=== PATIENT | male | born 1950 | race Caucasian/White ===

== ENCOUNTER 2020-12-09 12:07 | Outpatient (CLI) | payer MEDICARE, OTHER ==
[2020-12-09 14:32] LABS: Hemoglobin 16.2 g/dL (13.5-17.5); Mean Corpuscular HGB CONC 32.8 g/dL (32.0-36.0); Mean Corpuscular Hemoglobin 31.7 pg (27.0-33.0); Mean Corpuscular Volume 96.7 fl (81.2-95.1); Mean Platelet Volume 10.8 fl (7.4-10.4); Platelet Count 202 10x3/uL (150-450); Red Blood Cell (RBC) Count 5.11 10x6/uL (4.32-5.72); White Blood Cell (WBC) Count 9.2 10x3/uL (3.5-10.5)
[2020-12-09 14:38] LABS: Anion Gap 12 mmol/L (10-20); BUN (Urea Nitrogen) 12 mg/dL (8.4-25.7); Calc. Creatinine Clearance 0 mL/min (70-130); Calcium 8.9 mg/dL (7.8-10.44); Carbon Dioxide 31 mmol/L (23-31); Chloride 101 mmol/L (98-107); Glucose 89 mg/dL (80-115); Potassium 4.5 mmol/L (3.5-5.1); Sodium 139 mmol/L (136-145)
[2020-12-09 14:42] LABS: Bilirubin Neg (Negative); Blood, Urine Negative (Negative); Clarity Clear (Clear); Glucose, Urine (Dipstick) Normal (Negative); Ketone, Urine Negative (Negative); Leukocyte Negative (Negative); Nitrite Negative (Negative); Protein, Urine (Dipstick) Negative (Neg-Trace); Urobilinogen Normal mg/dL (Less than 2)
[2020-12-09 15:05] LABS: Bacteria/HPF None Seen HPF (None Seen); RBC/HPF 0-3 HPF (0-3); Squamous Epithelial None Seen HPF (0-3); WBC/HPF None Seen HPF (0-3)
[2020-12-10 04:28] LABS: SARS-CoV-2 PCR by NAA Not Detected (NotDetected)
== END 2020-12-09 12:08 | disposition home or self-care (01) ==
LOC: LABBT 12:07
PROVIDERS: ATTEND Urology
DX: Z01.818 Encounter for other preprocedural examination (principal); Z20.822 Contact with and (suspected) exposure to COVID-19; N40.1 Benign prostatic hyperplasia with lower urinary tract symptoms
CPT/HCPCS: 80048; 81001; 85027; 87086; 93005; U0003; U0005; 87635; 93010

== ENCOUNTER 2020-12-14 05:57 | Day surgery (SDC) | payer MEDICARE, OTHER ==
[2020-12-13 10:23] VITALS: BMI 24.3
[2020-12-14] MEDS ORDERED: Levofloxacin 500 mg/D5W 100 ml Premix Bag ONE (07:25)
[2020-12-14] MEDS ORDERED: PROPOFOL 200 MG/20 ML VIAL ONE (08:40)
[2020-12-14] MEDS ORDERED: Oxybutynin 5 MG TAB ONE (09:35)
[2020-12-14] MEDS ORDERED: Phenazopyridine HCl 100 MG TAB ONE (09:36)
[2020-12-14] MEDS ORDERED: Ketorolac Tromethamine 30 MG/ML VIAL ONE (10:16)
== END 2020-12-14 15:00 | disposition home or self-care (01) ==
LOC: SDC 05:57
PROVIDERS: ATTEND Urology
PROC: 0T7D8DZ Dilation of Urethra with Intraluminal Device, Via Natural or Artificial Opening Endoscopic (ICD-10-PCS; principal; 2020-12-14)
DX: N40.1 Benign prostatic hyperplasia with lower urinary tract symptoms (principal); R39.16 Straining to void; R39.12 Poor urinary stream; R39.14 Feeling of incomplete bladder emptying; E78.5 Hyperlipidemia, unspecified
CPT/HCPCS: J1885; J1956; J2704; L8699

== ENCOUNTER 2021-09-08 09:26 | Outpatient (CLI) | payer MEDICARE ==
[2021-09-08 10:20] LABS: Bilirubin Neg (Negative); Blood, Urine Negative (Negative); Clarity Clear (Clear); Glucose, Urine (Dipstick) Normal (Negative); Ketone, Urine Negative (Negative); Leukocyte 25 (Negative); Nitrite Negative (Negative); Protein, Urine (Dipstick) Negative (Neg-Trace); Specific Gravity, Urine 1.005 (1.002-1.036); Urobilinogen Normal mg/dL (Less than 2)
[2021-09-08 10:26] LABS: Hemoglobin 16.8 g/dL (13.5-17.5); Mean Corpuscular HGB CONC 32.2 g/dL (32.0-36.0); Mean Corpuscular Hemoglobin 31.3 pg (27.0-33.0); Mean Corpuscular Volume 97.2 fl (81.2-95.1); Mean Platelet Volume 10.4 fl (7.4-10.4); Platelet Count 219 10x3/uL (150-450); RBC Distribution Width 13.1 % (11.5-14.5); Red Blood Cell (RBC) Count 5.37 10x6/uL (4.32-5.72); White Blood Cell (WBC) Count 6.1 10x3/uL (3.5-10.5)
[2021-09-08 10:43] LABS: Anion Gap 14 mmol/L (10-20); BUN (Urea Nitrogen) 10 mg/dL (8.4-25.7); Calc. Creatinine Clearance 0 mL/min (70-130); Carbon Dioxide 28 mmol/L (23-31); Chloride 104 mmol/L (98-107); Glucose 108 mg/dL (80-115); Potassium 4.1 mmol/L (3.5-5.1); Sodium 142 mmol/L (136-145)
[2021-09-08 10:45] LABS: Bacteria/HPF None Seen HPF (None Seen); RBC/HPF None Seen HPF (0-3); Squamous Epithelial None Seen HPF (0-3); WBC/HPF 0-3 HPF (0-3)
[2021-09-08 22:40] LABS: SARS-CoV-2 PCR by NAA Not Detected (NotDetected)
== END 2021-09-08 09:27 | disposition home or self-care (01) ==
LOC: LABBT 09:26
PROVIDERS: ATTEND Urology
DX: Z01.818 Encounter for other preprocedural examination (principal); Z20.822 Contact with and (suspected) exposure to COVID-19
CPT/HCPCS: 80048; 81001; 85027; 87086; 93005; U0003; U0005; 93010

== ENCOUNTER 2021-09-13 06:49 | Day surgery (SDC) | payer MEDICARE ==
[2021-09-07 11:47] VITALS: BMI 24.0
[2021-09-13] MEDS ORDERED: Levofloxacin 500 mg/D5W 100 ml Premix Bag ONE (07:01)
[2021-09-13] MEDS ORDERED: Fentanyl 100 MCG/2 ML VIAL ONE (07:43)
[2021-09-13] MEDS ORDERED: ePHEDrine 50 MG/ML VIAL ONE (07:45)
[2021-09-13] MEDS ORDERED: PROPOFOL 200 MG/20 ML VIAL ONE (07:48)
[2021-09-13] MEDS ORDERED: Ketorolac Tromethamine 30 MG/ML VIAL ONE (08:51)
[2021-09-13] MEDS ORDERED: Phenazopyridine HCl 100 MG TAB ONE (08:52)
[2021-09-13] MEDS ORDERED: Oxybutynin 5 MG TAB ONE (08:52)
== END 2021-09-13 10:34 | disposition home or self-care (01) ==
LOC: SDC 06:49
PROVIDERS: ATTEND Urology
PROC: 0T7D8DZ Dilation of Urethra with Intraluminal Device, Via Natural or Artificial Opening Endoscopic (ICD-10-PCS; principal; 2021-09-13)
DX: N40.1 Benign prostatic hyperplasia with lower urinary tract symptoms (principal); N13.8 Other obstructive and reflux uropathy; R35.1 Nocturia; R39.12 Poor urinary stream; R35.0 Frequency of micturition; Z79.899 Other long term (current) drug therapy
CPT/HCPCS: J1885; J1956; J2704; J3010; J3490; L8699

== ENCOUNTER 2023-11-08 10:38 | Outpatient (CLI) | payer MEDICARE, OTHER ==
[2023-11-08 12:33] LABS: Hematocrit 51.4 % (38.8-50.0); Hemoglobin 17.3 g/dL (13.5-17.5); Mean Corpuscular HGB CONC 33.7 g/dL (32.0-36.0); Mean Corpuscular Hemoglobin 31.4 pg (27.0-33.0); Mean Corpuscular Volume 93.3 fl (81.2-95.1); Mean Platelet Volume 10.3 fl (7.4-10.4); Platelet Count 244 10x3/uL (150-450); RBC Distribution Width 13.5 % (11.5-14.5); Red Blood Cell (RBC) Count 5.51 10x6/uL (4.32-5.72); White Blood Cell (WBC) Count 6.7 10x3/uL (3.5-10.5)
[2023-11-08 12:50] LABS: PTT 30.6 sec (22.0-33.0); Prothrombin Time 11.2 sec (9.5-12.1)
[2023-11-08 12:57] LABS: Anion Gap 13 mmol/L (10-20); BUN (Urea Nitrogen) 16 mg/dL (8.4-25.7); Calc. Creatinine Clearance 0 mL/min (70-130); Carbon Dioxide 27 mmol/L (23-31); Chloride 105 mmol/L (98-107); Estimated GFR 92; Glucose 100 mg/dL (83-110); Potassium 4.4 mmol/L (3.5-5.1); Sodium 141 mmol/L (136-145)
[2023-11-08 13:18] LABS: Bilirubin Neg (Negative); Blood, Urine Negative (Negative); Clarity Clear (Clear); Glucose, Urine (Dipstick) Normal (Negative); Ketone, Urine Negative (Negative); Leukocyte Negative (Negative); Nitrite Negative (Negative); Protein, Urine (Dipstick) Negative (Neg-Trace); Specific Gravity, Urine 1.005 (1.005-1.030); Urobilinogen Normal mg/dL (Less than 2)
[2023-11-08 15:21] LABS: RBC/HPF 0-3 HPF (0-3); Squamous Epithelial 0-3 HPF (0-3); WBC/HPF None Seen HPF (0-3)
[2023-11-08 15:22] LABS: Bacteria/HPF None Seen HPF (None Seen)
== END 2023-11-08 10:39 | disposition home or self-care (01) ==
LOC: LABBT 10:38
PROVIDERS: ATTEND Urology
DX: Z01.818 Encounter for other preprocedural examination (principal); N40.1 Benign prostatic hyperplasia with lower urinary tract symptoms
CPT/HCPCS: 80048; 81001; 85027; 85610; 85730; 87086; 93005; 93010

== ENCOUNTER 2023-11-15 07:23 | Day surgery (SDC) | payer MEDICARE, OTHER ==
[2023-11-08 11:15] VITALS: BMI 23.3
[2023-11-15] MEDS ORDERED: LevoFLOXacin D5W 500 mg (100 mL) BAG ONE (09:27)
[2023-11-15] MEDS ORDERED: Rocuronium Bromide 10 MG/ML (10ML VIAL) ONE (10:14)
[2023-11-15] MEDS ORDERED: PROPOFOL 20 ML ONE (10:14)
[2023-11-15] MEDS ORDERED: fentaNYL PF 100 MCG/2 ML SYRINGE ONE (10:24)
[2023-11-15] MEDS ORDERED: Ketorolac Tromethamine 30 MG (1 mL) VIAL ONE (10:47)
[2023-11-15] MEDS ORDERED: Dexamethasone 4 mg/ml Vial ONE (10:47)
[2023-11-15] MEDS ORDERED: Ondansetron PF 4 MG/2 ML Vial ONE (10:47)
[2023-11-15] MEDS ORDERED: Glycopyrrolate 0.2 MG/ML 5 ML SYRINGE ONE (12:00)
[2023-11-15] MEDS ORDERED: NEOSTIGMINE 3 MG/3 ML SYR 3 MG/3 ML SYRINGE ONE (12:00)
[2023-11-15] MEDS ORDERED: Ondansetron ODT 4 MG TAB ONE (16:37)
== END 2023-11-15 17:53 | disposition home or self-care (01) ==
LOC: SDC 07:23
PROVIDERS: ATTEND Urology
PROC: 0VT08ZZ Resection of Prostate, Via Natural or Artificial Opening Endoscopic (ICD-10-PCS; principal; 2023-11-15)
DX: N40.1 Benign prostatic hyperplasia with lower urinary tract symptoms (principal); N13.8 Other obstructive and reflux uropathy
CPT/HCPCS: 52601; 82962; A4333; 36416; 88305; J1100; J1885; J1956; J2405; J2704; Q0162

== ENCOUNTER 2024-10-10 09:15 | Outpatient (CLI) | payer MEDICARE, OTHER ==
[2024-10-10 10:33] LABS: #Basophils 0.03 10x3/uL (0.0-0.2); %Basophils 0.3 % (0.0-1.0); %Lymphocytes 10.1 % (21.0-51.0); %Monocytes 7.1 % (0.0-10.0); %Neutrophils 81.3 % (42.0-75.0); Hemoglobin 17.2 g/dL (14.0-18.0); Mean Corpuscular HGB CONC 32.5 g/dL (32.0-36.0); Mean Corpuscular Hemoglobin 30.5 pg (27.0-31.0); Mean Platelet Volume 10.4 fL (7.4-10.4); Platelet Count 220 10x3/uL (130-400); RBC Distribution Width 13.3 % (11.5-14.5); Red Blood Cell (RBC) Count 5.64 mill/uL (4.70-6.10)
[2024-10-10 10:44] LABS: Bacteria/HPF None Seen HPF (None Seen); Bilirubin Negative (Negative); Blood, Urine Negative (Negative); Clarity Clear (Clear); Glucose, Urine (Dipstick) Normal (Negative); Ketone, Urine Negative (Negative); Leukocyte Negative Leu/uL (Negative); Nitrite Negative (Negative); Protein, Urine (Dipstick) Negative (Neg-Trace); RBC/HPF None Seen HPF (0-3); Specific Gravity, Urine 1.003 (1.002-1.036); Squamous Epithelial 0-3 HPF (0-3); Urobilinogen Normal mg/dL (Less than 2); WBC/HPF 0-3 HPF (0-3); pH, Urine 6.5 (5.0-9.0)
[2024-10-10 10:52] LABS: Anion Gap 13 mmol/L (10-20); BUN (Urea Nitrogen) 12 mg/dL (8.4-25.7); Calc. Creatinine Clearance 0 mL/min (70-130); Calcium 8.9 mg/dL (7.8-10.44); Carbon Dioxide 29 mmol/L (23-31); Chloride 104 mmol/L (98-107); Estimated GFR 94; Glucose 100 mg/dL (83-110); PTT 30.9 sec (22.9-36.1); Sodium 142 mmol/L (136-145)
== END 2024-10-10 09:16 | disposition home or self-care (01) ==
LOC: LABBT 09:15
PROVIDERS: ATTEND Urology
DX: Z01.818 Encounter for other preprocedural examination (principal); N40.1 Benign prostatic hyperplasia with lower urinary tract symptoms
CPT/HCPCS: 80048; 81001; 85025; 85610; 85730; 87086; 93005; 93010

== ENCOUNTER 2024-10-24 06:04 | Day surgery (SDC) | payer MEDICARE, OTHER ==
[2024-10-10 09:35] VITALS: BMI 24.7
[2024-10-24] MEDS ORDERED: cefTRIAXone (ROCEPHIN) 1 GM VIAL ONE (06:11)
[2024-10-24] MEDS ORDERED: Sodium Chloride 0.9% 100 ML ONE (06:11)
[2024-10-24] MEDS ORDERED: Glycopyrrolate 0.2 MG/ML 5 ML SYRINGE ONE (07:09)
[2024-10-24] MEDS ORDERED: Lidocaine 1% PF 5 ML VIAL ONE (07:09)
[2024-10-24] MEDS ORDERED: Dexamethasone 20 MG/5 ML VIAL ONE (07:09)
[2024-10-24] MEDS ORDERED: PHENYLEPHRINE-NS 100 MCG/ML 10 ML SYRINGE ONE (07:09)
[2024-10-24] MEDS ORDERED: fentaNYL PF 100 MCG/2 ML SYRINGE ONE (07:09)
[2024-10-24] MEDS ORDERED: Ondansetron PF 4 MG/2 ML Vial ONE (07:09)
[2024-10-24] MEDS ORDERED: PROPOFOL 20 ML ONE (07:09)
[2024-10-24] MEDS ORDERED: Phenazopyridine HCl 100 MG TAB ONE (09:30)
[2024-10-24] MEDS ORDERED: Oxybutynin 5 MG TAB ONE ×2 (09:31)
== END 2024-10-24 11:30 | disposition home or self-care (01) ==
LOC: SDC 06:04
PROVIDERS: ATTEND Urology
PROC: 0VT08ZZ Resection of Prostate, Via Natural or Artificial Opening Endoscopic (ICD-10-PCS; principal; 2024-10-24)
DX: N40.1 Benign prostatic hyperplasia with lower urinary tract symptoms (principal); R97.20 Elevated prostate specific antigen [PSA]; E78.5 Hyperlipidemia, unspecified; Z98.890 Other specified postprocedural states
CPT/HCPCS: 52630; A4333; J0696; J1100; J2405; J2704; 88305